=== PATIENT | male | born 1955 | race American Indian/Alaskan Native ===

== ENCOUNTER 2019-10-20 13:26 | Emergency (ER) | payer OTHER ==
[2019-10-20 13:49] VITALS: BP 168/78
--- NOTE | 2019-10-20 13:51 | Emergency Department Report ---
Chief Complaint: Neck Pain/Injury Stated Complaint: NECK PAIN Time Seen by Provider: 10/20/19 13:47 - HPI History of Present Illness: Mr. Lagos presents with 2 cm right neck mass possibly hypertrophied lymph node or undifferentiated tumor. Referred to his PCP CAMPBELL performed. - Exam Vital Signs: Vital Signs 10/20/19 13:47 Temperature 97.5 F L Pulse Rate 82 Respiratory 18 Rate Blood Pressure 168/78 O2 Sat by Pulse 100 Oximetry MSE screening note: Focused history and physical exam performed. Due to findings the following was ordered: ED Disposition for MSE Clinical Impression: Lymphadenitis Disposition: MED SCREENING EXAM-LEFT Condition: Stable Instructions: Lymphadenopathy (ED) Additional Instructions: Please follow up with your PCP in 1-2 weeks. Referrals: PRIMARY CARE, [Referring] - 3-5 Days
== END 2019-10-20 14:00 | disposition left against medical advice (07) ==
LOC: ED 13:26
DX: I88.9 Nonspecific lymphadenitis, unspecified (principal)
CPT/HCPCS: 99281